=== PATIENT | male | born 1960 | race Two or more races ===

== ENCOUNTER 2023-06-28 20:20 | Emergency (ER) | payer OTHER ==
[~2023-06-28] VITALS: Ht 170.2 cm; Wt 70.0 kg
[2023-06-28 20:20] VITALS: BP 217/77; PULSE 68; RESP 18; O2SAT 99
[2023-06-29] MEDS ORDERED: CIPR0.3S67 RIGHTEYE (02:43)
== END 2023-06-29 03:17 | disposition home or self-care (01) ==
LOC: EDBD 20:20 → ER 20:23
DX: S00.81XA Abrasion of other part of head, initial encounter (principal); E11.9 Type 2 diabetes mellitus without complications; I10 Essential (primary) hypertension; E78.5 Hyperlipidemia, unspecified; Z98.890 Other specified postprocedural states; V69.88XA Occupant (driver) (passenger) of heavy transport vehicle injured in other specified transport accidents, initial encounter; Y93.89 Activity, other specified; Y92.89 Other specified places as the place of occurrence of the external cause; Y99.8 Other external cause status
CPT/HCPCS: 70450; 71045; 72125